=== PATIENT | male | born 1950 | race Caucasian/White ===

== ENCOUNTER 2019-10-13 13:59 | Emergency (ER) | payer MEDICARE ==
[~2019-10-13] VITALS: Ht 175.3 cm; Wt 86.8 kg
[2019-10-13 14:04] VITALS: BP 115/81
--- NOTE | 2019-10-13 14:29 | NUR ---
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
--- NOTE | 2019-10-13 15:26 | NUR ---
AWAITING CHART FOR DC.
== END 2019-10-13 15:34 | disposition home or self-care (01) ==
LOC: ED 15:10
DX: M79.662 Pain in left lower leg (principal); M79.661 Pain in right lower leg; G89.29 Other chronic pain; Z76.0 Encounter for issue of repeat prescription; F17.200 Nicotine dependence, unspecified, uncomplicated
CPT/HCPCS: 99283

== ENCOUNTER 2019-10-21 23:11 | Emergency (ER) | payer MEDICARE ==
[~2019-10-21] VITALS: Ht 175.3 cm; Wt 85.5 kg
[2019-10-21 23:12] VITALS: BP 125/85
--- NOTE | 2019-10-21 23:46 | NUR ---
NO ANSWER WHEN CALLED FOR ROOM AT THIS TIME.
--- NOTE | 2019-10-22 00:04 | NUR ---
NO ANSWER WHEN CALLED FOR ROOM, NEXT PT ROOMED
--- NOTE | 2019-10-22 01:06 | NUR ---
CALLED FOR ROOM, NO ANSWER
--- NOTE | 2019-10-22 01:55 | NUR ---
NO ANSWER CALLED FOR ROOM, SECURITY NOTES THAT THEY HAVE SEEN PT RECENTLY, WILL CONTINUE TO CALL.
--- NOTE | 2019-10-22 02:41 | NUR ---
no answer when called for room, next pt roomed
== END 2019-10-22 03:28 | disposition left against medical advice (07) ==
LOC: ED 10-22 03:17
DX: M25.511 Pain in right shoulder (principal); Z53.21 Procedure and treatment not carried out due to patient leaving prior to being seen by health care provider

== ENCOUNTER 2019-10-29 14:58 | Emergency (ER) | payer MEDICARE ==
[~2019-10-29] VITALS: Ht 177.8 cm; Wt 85.5 kg
[2019-10-29 15:05] VITALS: BP 110/70
--- NOTE | 2019-10-29 16:00 | NUR ---
pt refuses labs at this time
== END 2019-10-29 17:36 | disposition home or self-care (01) ==
LOC: MERGE 14:58 → EDBD 14:58 → ED 17:01
DX: F22 Delusional disorders (principal)
CPT/HCPCS: 99283